=== PATIENT | female | born 1965 | race Two or more races ===

== ENCOUNTER 2021-12-15 19:49 | Inpatient (IN) | payer MEDICAID ==
[~2021-12-15] VITALS: Ht 157.5 cm; Wt 90.0 kg
[2021-12-15] MEDS ORDERED: temazepam 15mg capsule PO PRN (21:00)
[2021-12-15 21:27] LABS: BASOPHILS % (AUTO) 0.9 % (0-1); EOSINOPHILS % (AUTO) 0.8 % (0-6); HEMATOCRIT 23.4 % (35.0-45.0); LYMPHOCYTES # (AUTO) 0.5 X10'3 (1.1-4.8); LYMPHOCYTES % (AUTO) 17.3 % (21-51); MEAN CORPUSCULAR HEMOGLOBIN 29.2 PG (27.0-31.0); MEAN CORPUSCULAR HGB CONC 34.3 g/dL (33.0-36.5); MEAN CORPUSCULAR VOLUME 85.1 FL (78-98); MEAN PLATELET VOLUME 7.1 FL (7.4-10.4); MONOCYTES # (AUTO) 0.2 X10'3 (0-0.9); MONOCYTES % (AUTO) 5.7 % (2-12); NEUTROPHILS % (AUTO) 75.3 % (42-75); PLATELET COUNT 141 X10'3 (140-440); RED BLOOD COUNT 2.75 X10'6 (4.20-5.60); RED CELL DISTRIBUTION WIDTH 14.9 % (11.5-14.5); WHITE BLOOD COUNT 2.6 X10'3 (4.5-11.0)
[2021-12-15] MEDS ORDERED: magnesium 4gm in 100ml NS 100 ML IV PRN (21:35)
[2021-12-15] MEDS ORDERED: potassium Cl 20 mEq SR tablet PO PRN ×2 (21:35)
[2021-12-15] MEDS ORDERED: glucagon, human recombinant 1mg kit SUBCUT PRN (21:35)
[2021-12-15] MEDS ORDERED: potassium CL 10mEq/100ml bag 100 ML IV PRN (21:35)
[2021-12-15] MEDS ORDERED: HYDROcodone/acetaminophen 5mg/325mg tablet PO PRN (21:35)
[2021-12-15] MEDS ORDERED: morphine 2 MG/ML inj. syringe IV PRN (21:35)
[2021-12-15] MEDS ORDERED: magnesium 2GM in 50ml NS 50 ML IV PRN (21:35)
[2021-12-15] MEDS ORDERED: magnesium Cl slow-release 64mg tablet PO PRN (21:35)
[2021-12-15] MEDS ORDERED: MESSAGE TO PHARMACY PO ONE (21:35)
[2021-12-15] MEDS ORDERED: insulin Lispro (HumaLOG) vial - multi-dose SQ SCH (21:35)
[2021-12-15] MEDS ORDERED: dextrose 50%-water 50ml dispensing syringe IV PRN ×2 (21:35)
[2021-12-15] MEDS ORDERED: magnesium hydroxide 30ml (MOM) UD suspension PO PRN (21:35)
[2021-12-15] MEDS ORDERED: ondansetron/PF 4mg/2ml inj IV PRN (21:35)
[2021-12-15] MEDS ORDERED: acetaminophen 325mg tablet PO PRN ×2 (21:35)
[2021-12-15] MEDS ORDERED: dextrose ORAL solution 15 GM/59 ML bottle PO PRN ×2 (21:35)
[2021-12-15 21:39] LABS: ALANINE AMINOTRANSFERASE 42 U/L (12-78); ALBUMIN 3.2 G/DL (3.4-5.0); ALBUMIN/GLOBULIN RATIO 0.8 (1.1-1.5); ALKALINE PHOSPHATASE 121 IU/L (46-116); ANION GAP 10 (8-16); ASPARTATE AMINO TRANSFERASE 44 U/L (10-37); BILIRUBIN,TOTAL 0.5 MG/DL (0.1-1.0); BLOOD UREA NITROGEN 27 MG/DL (7-18); BUN/CREATININE RATIO 3.8 (6.6-38.0); CALCIUM 8.4 MG/DL (8.5-10.1); CHLORIDE 96 MMOL/L (99-107); CREATININE 7.18 MG/DL (0.40-0.90); GLUCOSE 143 MG/DL (70-104); POTASSIUM 3.9 MMOL/L (3.5-5.1); SODIUM 135 MMOL/L (135-145); TOTAL CARBON DIOXIDE 29.2 MMOL/L (24-32); TOTAL PROTEIN 7.1 G/DL (6.4-8.2); eGFR 6 ML/MIN
[2021-12-15 21:52] LABS: PLATELET ESTIMATE NORMAL; TOTAL CELLS COUNTED 100
[2021-12-15 21:53] LABS: ANISOCYTOSIS 1+
[2021-12-15] MEDS ORDERED: levoFLOXACIN-Levaquin 750MG/D5 150 ML IV ONE (22:01)
[2021-12-15] MEDS: labetalol 100mg tablet PO SCH (22:27)
[2021-12-16 00:15] VITALS: BP 145/64
[2021-12-16 06:00] VITALS: BP 155/68
--- NOTE | 2021-12-16 06:06 | NUR ---
Problems reprioritized. Patient report given, questions answered & plan of care reviewed with JASE Peoples.
--- NOTE | 2021-12-16 07:45 | NUR ---
Could you bring up ALETHEA Cramer room 4014-a labetolol 100mg on next run. BP elevated and it doesn't look like it's stocked up here. Thank you, Negrita sosa Addendum: 12/16/21 at 0831 by Negrita Curry RN Page to pharmacy due to missing med
[2021-12-16] MEDS ORDERED: normal saline 1000ml 250 ML IV PRN (07:50)
[2021-12-16] MEDS ORDERED: EPOETIN ALFA-EPBX 20,000 UNIT/ML 1 ML MDV IV ONE (07:50)
[2021-12-16] MEDS ORDERED: heparin 1,000 units/ml 10ml inj IV ONE ×2 (07:50)
[2021-12-16] MEDS ORDERED: heparin 1,000 units/ml 10ml inj HE ONE ×2 (07:55)
[2021-12-16] MEDS ORDERED: K and/or MAG REPLACEMENT MC SCH (08:00)
[2021-12-16] MEDS ORDERED: dexamethasone 4mg/ml inj IV SCH (08:00)
[2021-12-16] MEDS ORDERED: furosemide 40mg/4ml inj IV SCH (08:00)
[2021-12-16] MEDS ORDERED: dexamethasone 6 MG/D5W 100ml IV.soln (total 101.5ml) IV SCH ×2 (08:00)
[2021-12-16] MEDS ORDERED: cefepime 1GM/NS ADD-VANTAGE 100 ML IV SCH (08:00)
[2021-12-16] MEDS: labetalol 100mg tablet PO SCH (10:04)
[2021-12-16 10:06] VITALS: BP 158/85
[2021-12-16 10:12] LABS: BASOPHILS % (AUTO) 0.8 % (0-1); EOSINOPHILS % (AUTO) 1.3 % (0-6); HEMATOCRIT 22.7 % (35.0-45.0); HEMOGLOBIN 7.5 g/dl (12.0-16.0); LYMPHOCYTES # (AUTO) 0.4 X10'3 (1.1-4.8); LYMPHOCYTES % (AUTO) 26.8 % (21-51); MEAN CORPUSCULAR HEMOGLOBIN 28.7 PG (27.0-31.0); MEAN CORPUSCULAR HGB CONC 33.1 g/dL (33.0-36.5); MEAN CORPUSCULAR VOLUME 86.6 FL (78-98); MEAN PLATELET VOLUME 7.6 FL (7.4-10.4); MONOCYTES # (AUTO) 0.1 X10'3 (0-0.9); MONOCYTES % (AUTO) 8.1 % (2-12); PLATELET COUNT 128 X10'3 (140-440); RED BLOOD COUNT 2.63 X10'6 (4.20-5.60); RED CELL DISTRIBUTION WIDTH 14.9 % (11.5-14.5); WHITE BLOOD COUNT 1.6 X10'3 (4.5-11.0)
[2021-12-16 10:16] LABS: ALANINE AMINOTRANSFERASE 39 U/L (12-78); ALBUMIN 2.9 G/DL (3.4-5.0); ALBUMIN/GLOBULIN RATIO 0.9 (1.1-1.5); ALKALINE PHOSPHATASE 112 IU/L (46-116); ANION GAP 12 (8-16); ASPARTATE AMINO TRANSFERASE 37 U/L (10-37); BILIRUBIN,TOTAL 0.4 MG/DL (0.1-1.0); BLOOD UREA NITROGEN 30 MG/DL (7-18); BUN/CREATININE RATIO 3.9 (6.6-38.0); CALCIUM 7.7 MG/DL (8.5-10.1); CHLORIDE 95 MMOL/L (99-107); CREATININE 7.63 MG/DL (0.40-0.90); GLUCOSE 150 MG/DL (70-104); POTASSIUM 3.4 MMOL/L (3.5-5.1); SODIUM 135 MMOL/L (135-145); TOTAL CARBON DIOXIDE 28.5 MMOL/L (24-32); TOTAL PROTEIN 6.3 G/DL (6.4-8.2); eGFR 6 ML/MIN
[2021-12-16 10:36] LABS: PLATELET ESTIMATE DECREASED; TOTAL CELLS COUNTED 100
--- NOTE | 2021-12-16 11:20 | NUR ---
Patient weaned to room air Pt. weaned to room air O2 saturation 98% Negrita PCU.
--- NOTE | 2021-12-16 11:28 | NUR ---
Potassium replacement Per Dr. Flores no need to replace potassium level at 3.4 due to kidney function.
--- NOTE | 2021-12-16 11:52 | NUR ---
Noted pt with T2DM, well controlled with A1c 7.0%. Pt Romansh speaking per EMR. Written DM education in Romansh with RD contact information mailed to patient's address found in EMR. Will remain available. Addendum: 12/16/21 at [address] Amended: Links added.
[2021-12-16] MEDS ORDERED: DEC4T PO (11:56)
[2021-12-16 14:00] VITALS: BP 134/72
--- NOTE | 2021-12-16 17:19 | NUR ---
Pt. received discharge instructions; Pt. IV removed with catheter intact; Pt. royce called in to [place] in [facility]. Pt. had no questions at time of discharge; Pt. awaiting son's arrival from [facility]. [facility]
[2021-12-16] MEDS ORDERED: insulin glargine (Lantus) pen - multi-dose SQ SCH (21:00)
[2021-12-17] MEDS ORDERED: levoFLOXACIN-Levaquin 500mg/D5 100 ML IV SCH (22:00)
[2021-12-19 10:32] LABS: HBSAG SCREEN Negative (Negative)
== END 2021-12-16 18:18 | disposition home or self-care (01) | DRG 194 ==
LOC: ER 19:50 → ED HOLD 21:40 → ORTHO 4S 23:55
PROVIDERS: ADMIT Internal Medicine; ATTEND Family Medicine
PROC: 5A1D70Z Performance of Urinary Filtration, Intermittent, Less than 6 Hours Per Day (ICD-10-PCS; principal; 2021-12-16)
DX: I13.2 Hypertensive heart and chronic kidney disease with heart failure and with stage 5 chronic kidney disease, or end stage renal disease (principal); U07.1 COVID-19; D61.818 Other pancytopenia; N18.6 End stage renal disease; E11.22 Type 2 diabetes mellitus with diabetic chronic kidney disease; R74.01 Elevation of levels of liver transaminase levels; Z60.3 Acculturation difficulty; I50.9 Heart failure, unspecified; Z99.2 Dependence on renal dialysis; Z88.0 Allergy status to penicillin; Z89.511 Acquired absence of right leg below knee; Z91.15 Patient's noncompliance with renal dialysis
CPT/HCPCS: 36415; 80053; 83036; 83605; 85007; 85025; 87040; 87081; 87340; 93005; 99285; G0378; J1100; J1644; J1815; J1940; J1956; J7060; Q4081